=== PATIENT | male | born 1950 | race Caucasian/White ===

== ENCOUNTER 2020-02-03 11:42 | Emergency (ER) | payer MEDICAID, MEDICARE ==
[~2020-02-03] VITALS: Ht 182.9 cm; Wt 61.2 kg
--- NOTE | 2020-02-03 12:19 | NUR ---
PT C/O GLF 2.5 WEEKS AGO, AND HAS PERSISTING MID BACK PAIN, MORE TENDER ON EITHER SIDE OF SPINE. PT WALKED TO ED TODAY. CHANGED INTO GOWN, RESPIRATIONS EVEN AND UNLABORED ON RA. AWAITING JONAS DELGADILLO.
[2020-02-03] MEDS ORDERED: METHOCARBAMOL 750 MG TABLET ONE (12:24)
[2020-02-03] MEDS ORDERED: KETOROLAC 30 MG/1 ML ONE (12:24)
[2020-02-03] MEDS ORDERED: OXYcodone/APAP 5/325MG TABLET ONE (12:25)
[2020-02-03] MEDS ORDERED: KETOROLAC 30 MG/1 ML IM ONE (12:30)
[2020-02-03] MEDS ORDERED: OXYcodone/APAP 5/325MG TABLET PO ONE (12:30)
[2020-02-03] MEDS ORDERED: METHOCARBAMOL 750 MG TABLET PO ONE (12:30)
--- NOTE | 2020-02-03 13:19 | NUR ---
ERMD IN TO ASSESS PT AND DISCUSS IMAGING FINDINGS WITH HIM. PLAN FOR CT. PT AGREES WITH PLAN OF CARE. SIDE RAILS UP, CALL LIGHT IN REACH.
--- NOTE | 2020-02-03 14:36 | NUR ---
BREAK RN FOR PRIMARY RN RYAN. RECEIVED REPORT. WOLF ANGEL AT BEDSIDE FOR RECHECK, DISCUSSING POC, PT TO BE DISCHARGED. AWAITING CHART AND DC PAPERS FROM ERP. VSS. CALL LIGHT IN REACH. FALL PRECUATIONS IN PLACE.
--- NOTE | 2020-02-03 15:02 | NUR ---
BREAK RN. PEPORT AND CARE BACK TO PRIMARY GUS DAVIS. AWAITING DC PAPERS FROM ERP.
[2020-02-03 15:08] VITALS: BP 135/75
== END 2020-02-03 15:11 | disposition home or self-care (01) ==
LOC: ED 14:43
DX: S22.060A Wedge compression fracture of T7-T8 vertebra, initial encounter for closed fracture (principal); S32.020A Wedge compression fracture of second lumbar vertebra, initial encounter for closed fracture; R00.0 Tachycardia, unspecified; I10 Essential (primary) hypertension; W01.0XXA Fall on same level from slipping, tripping and stumbling without subsequent striking against object, initial encounter; Y93.89 Activity, other specified; Y92.89 Other specified places as the place of occurrence of the external cause; Y99.8 Other external cause status
CPT/HCPCS: 72072; 72128; 72131; 93005; 96372; 99285; J1885

== ENCOUNTER 2020-02-19 11:40 | Emergency (ER) | payer MEDICARE ==
[~2020-02-19] VITALS: Ht 182.9 cm; Wt 60.3 kg
--- NOTE | 2020-02-19 12:10 | NUR ---
pt ambulated to room, vss,
[2020-02-19] MEDS ORDERED: HYDROcodone/APAP 5/325 TABLET PO STA (12:56)
--- NOTE | 2020-02-19 14:00 | NUR ---
preceptor: pt udated on poc. no questions at this time.
--- NOTE | 2020-02-19 14:09 | NUR ---
pt to mri
--- NOTE | 2020-02-19 15:00 | NUR ---
pt in mri
[2020-02-19 16:05] VITALS: BP 144/87
== END 2020-02-19 16:13 | disposition home or self-care (01) ==
LOC: ED 12:14
DX: S22.060A Wedge compression fracture of T7-T8 vertebra, initial encounter for closed fracture (principal); M54.5 Low back pain; R00.0 Tachycardia, unspecified; F17.200 Nicotine dependence, unspecified, uncomplicated; X58.XXXA Exposure to other specified factors, initial encounter; Y93.89 Activity, other specified; Y92.89 Other specified places as the place of occurrence of the external cause; Y99.8 Other external cause status
CPT/HCPCS: 72146; 72148; 93005; 99285